=== PATIENT | male | born 1965 | race Caucasian/White ===

== ENCOUNTER 2017-09-14 20:53 | Inpatient (IN) | payer MEDICARE, MEDICAID ==
[~2017-09-14] VITALS: Ht 6290.3 cm; Wt 195.0 kg
[2017-09-14] MEDS ORDERED: normal saline 1000ml 1,000 ML IV ONE ×3 (21:19→22:05)
[2017-09-14] MEDS ORDERED: diltiazem 5mg/ml 5ml inj. IV ONE (21:20)
[2017-09-14] MEDS ORDERED: normal saline 1000ML IV soln IVB ONE (21:20)
[2017-09-14 21:32] LABS: BASOPHILS % (AUTO) 0 % (0-1); EOSINOPHILS # (AUTO) 0.1 X10'3 (0-0.9); EOSINOPHILS % (AUTO) 0.3 % (0-6); HEMOGLOBIN 13.9 g/dl (14.0-17.9); LYMPHOCYTES # (AUTO) 0.5 X10'3 (1.1-4.8); LYMPHOCYTES % (AUTO) 2.9 % (21-51); MEAN CORPUSCULAR HEMOGLOBIN 27.8 PG (27.0-31.0); MEAN CORPUSCULAR HGB CONC 33.2 % (33.0-36.5); MEAN CORPUSCULAR VOLUME 83.9 FL (78-98); MEAN PLATELET VOLUME 7.5 FL (7.4-10.4); MONOCYTES # (AUTO) 0.6 X10'3 (0-0.9); MONOCYTES % (AUTO) 3.2 % (2-12); NEUTROPHILS # (AUTO) 16.7 X10'3 (1.8-7.7); NEUTROPHILS % (AUTO) 93.6 % (42-75); PLATELET COUNT 226 X10'3 (140-440); RED BLOOD COUNT 5.01 X10'6 (4.70-6.10); RED CELL DISTRIBUTION WIDTH 14.1 % (11.5-14.5); WHITE BLOOD COUNT 17.8 X10'3 (4.5-11.0)
[2017-09-14 21:46] LABS: INR 1.1 INR; PARTIAL THROMBOPLASTIN TIME 26 SECONDS (22-32)
[2017-09-14 22:00] LABS: ALANINE AMINOTRANSFERASE 72 U/L (12-78); ALBUMIN 3.8 G/DL (3.4-5.0); ALBUMIN/GLOBULIN RATIO 0.9 (1.1-1.5); ALKALINE PHOSPHATASE 72 IU/L (46-116); ANION GAP 14 (8-16); ASPARTATE AMINO TRANSFERASE 54 U/L (10-37); BILIRUBIN,TOTAL 0.9 MG/DL (0.1-1.0); BLOOD UREA NITROGEN 17 MG/DL (7-18); BUN/CREATININE RATIO 13.3 (5.4-32.0); CALCIUM 9.1 MG/DL (8.5-10.1); CHLORIDE 98 MMOL/L (99-107); CREATININE 1.28 MG/DL (0.60-1.10); GLUCOSE 214 MG/DL (70-104); MAGNESIUM 1.7 MG/DL (1.5-2.4); PHOSPHORUS 2.6 MG/DL (2.3-4.5); POTASSIUM 4.1 MMOL/L (3.5-5.1); SODIUM 135 MMOL/L (135-145); TOTAL CARBON DIOXIDE 22.7 MMOL/L (24-32); TOTAL PROTEIN 8.1 G/DL (6.4-8.2); eGFR 59 ML/MIN
[2017-09-14] MEDS ORDERED: normal saline 1000ML IV soln IV ONE (22:25)
[2017-09-14 22:38] LABS: TOTAL CELLS COUNTED 100
[2017-09-14 22:39] LABS: LARGE PLATELETS FEW; PLATELET ESTIMATE NORMAL
[2017-09-14] MEDS ORDERED: azithromycin/NS 500mg/250ml 250 ML IV ONE (23:45)
[2017-09-14] MEDS ORDERED: CefTRIAXone 2gm/NS 100ml IVPB 100 ML IV ONE (23:45)
[2017-09-15] MEDS ORDERED: acetaminophen 325mg tablet PO PRN (00:20)
[2017-09-15] MEDS ORDERED: magnesium hydroxide 30ml (MOM) UD suspension PO PRN (00:20)
[2017-09-15] MEDS ORDERED: magnesium 4gm in 100ml NS 100 ML IV PRN (00:20)
[2017-09-15] MEDS ORDERED: magnesium 2GM in 50ml NS 50 ML IV PRN (00:20)
[2017-09-15] MEDS ORDERED: ipratropium/albuterol 3ml nebule NEB PRN (00:20)
[2017-09-15] MEDS ORDERED: potassium Cl 20 mEq SR tablet PO PRN ×2 (00:20)
[2017-09-15] MEDS ORDERED: morphine 2 MG/ML inj. syringe IV PRN (00:20)
[2017-09-15] MEDS ORDERED: albuterol 2.5 MG/3 ML nebule NEB PRN (00:20)
[2017-09-15] MEDS ORDERED: potassium Cl 40MEQ/NS 500ml 500 ML IV PRN ×2 (00:20)
[2017-09-15] MEDS ORDERED: mag hydrox/Alum hydrox/simeth 30ml oral suspension PO PRN (00:20)
[2017-09-15] MEDS ORDERED: magnesium Cl slow-release 64mg tablet PO PRN (00:20)
[2017-09-15] MEDS ORDERED: LOPE2TAB25 PO (00:29)
[2017-09-15] MEDS ORDERED: NITR0.4T51 SL (00:29)
[2017-09-15] MEDS ORDERED: LOSA25TA96 PO (00:29)
[2017-09-15] MEDS ORDERED: BUPR75TA8 PO (00:29)
[2017-09-15] MEDS ORDERED: NYSPWD TP (00:29)
[2017-09-15] MEDS ORDERED: LISI-604 PO (00:29)
[2017-09-15] MEDS ORDERED: METF500T PO (00:29)
[2017-09-15] MEDS: morphine 2 MG/ML inj. syringe IV PRN ×2 (01:18→14:39)
[2017-09-15] MEDS: ondansetron/PF 4mg/2ml inj IV PRN ×2 (01:18→08:22)
[2017-09-15 06:51] LABS: CLARITY,URINE Clear (Clear); COLOR,URINE Yellow (Yellow); GLUCOSE, URINE Negative (Neg); KETONES,URINE Trace mg/dl (Neg); LEUKOCYTE ESTERASE ,URINE Trace (Neg); NITRITES, URINE Negative (Neg); OCCULT BLOOD,URINE Negative (Neg); PROTEIN,URINE Negative (Neg)
[2017-09-15] MEDS: normal saline 1000ml 1,000 ML IV SCH ×3 (06:55→20:20)
[2017-09-15 06:58] LABS: UA COLLECTION TYPE CLN CATCH MIDSTREAM
[2017-09-15 06:59] LABS: BACTERIA,URINE FEW /HPF (Neg); MUCUS STRANDS MODERATE /LPF (Neg); RBC,URINE 0-2 /HPF (0-2); SQUAMOUS EPITHELIAL CELL,UR FEW /LPF (FEW); WBC,URINE 0-4 /HPF (0-4)
[2017-09-15] MEDS: K and/or MAG REPLACEMENT MC SCH (08:00)
[2017-09-15] MEDS ORDERED: oseltamivir phos 75mg capsule PO SCH ×2 (08:00)
[2017-09-15] MEDS: atenolol 50mg tablet PO SCH (08:16)
[2017-09-15] MEDS: azithromycin/NS 500mg/250ml 250 ML IV SCH (08:16)
[2017-09-15] MEDS: enoxaparin 60mg/0.6ml syringe SUBCUT SCH ×2 (08:23→21:12)
[2017-09-15] MEDS: enoxaparin 30mg/0.3ml syringe SUBCUT SCH ×2 (08:23→21:12)
[2017-09-15] MEDS: CefTRIAXone 2gm/NS 100ml IVPB 100 ML IV SCH (09:33)
[2017-09-15 10:32] LABS: HEMOGLOBIN A1C 6.6 % (4.5-6.2)
[2017-09-15 13:30] VITALS: BP 128/78
[2017-09-15 18:00] VITALS: BP 116/47
[2017-09-15] MEDS ORDERED: temazepam 15mg capsule PO PRN (21:00)
[2017-09-15] MEDS: lactobacillus rhamnosus 10,000 MMU CELLS/CAPSULE PO SCH (21:11)
[2017-09-15 22:17] VITALS: BP 110/68
[2017-09-16 02:03] VITALS: BP 118/74
[2017-09-16] MEDS: normal saline 1000ml 1,000 ML IV SCH (05:56)
[2017-09-16 06:00] VITALS: BP 117/63
[2017-09-16 06:23] LABS: BASOPHILS % (AUTO) 0.3 % (0-1); EOSINOPHILS # (AUTO) 0.2 X10'3 (0-0.9); EOSINOPHILS % (AUTO) 3.2 % (0-6); HEMATOCRIT 33.9 % (42.0-52.0); HEMOGLOBIN 11.2 g/dl (14.0-17.9); LYMPHOCYTES # (AUTO) 1.7 X10'3 (1.1-4.8); LYMPHOCYTES % (AUTO) 26.4 % (21-51); MEAN CORPUSCULAR HEMOGLOBIN 28.1 PG (27.0-31.0); MEAN CORPUSCULAR HGB CONC 33.1 % (33.0-36.5); MEAN CORPUSCULAR VOLUME 85.1 FL (78-98); MEAN PLATELET VOLUME 7.5 FL (7.4-10.4); MONOCYTES # (AUTO) 0.6 X10'3 (0-0.9); NEUTROPHILS # (AUTO) 3.8 X10'3 (1.8-7.7); NEUTROPHILS % (AUTO) 60.1 % (42-75); PLATELET COUNT 161 X10'3 (140-440); RED BLOOD COUNT 3.99 X10'6 (4.70-6.10); RED CELL DISTRIBUTION WIDTH 14.4 % (11.5-14.5); WHITE BLOOD COUNT 6.4 X10'3 (4.5-11.0)
[2017-09-16 06:36] LABS: ALANINE AMINOTRANSFERASE 49 U/L (12-78); ALBUMIN 2.7 G/DL (3.4-5.0); ALBUMIN/GLOBULIN RATIO 0.8 (1.1-1.5); ALKALINE PHOSPHATASE 44 IU/L (46-116); ANION GAP 9 (8-16); ASPARTATE AMINO TRANSFERASE 32 U/L (10-37); BILIRUBIN,TOTAL 0.4 MG/DL (0.1-1.0); BLOOD UREA NITROGEN 14 MG/DL (7-18); BUN/CREATININE RATIO 14.9 (5.4-32.0); CHLORIDE 105 MMOL/L (99-107); CHOLESTEROL 112 MG/DL (0-200); CREATININE 0.94 MG/DL (0.60-1.10); GLUCOSE 111 MG/DL (70-104); HDL CHOLESTEROL 37 MG/DL (35-60); LDL CHOLESTEROL 62 MG/DL (50-100); POTASSIUM 3.9 MMOL/L (3.5-5.1); SODIUM 140 MMOL/L (135-145); TOTAL CARBON DIOXIDE 26.1 MMOL/L (24-32); TOTAL PROTEIN 6.1 G/DL (6.4-8.2); TRIGLYCERIDES 75 MG/DL (20-135); eGFR 84 ML/MIN
[2017-09-16] MEDS: atenolol 50mg tablet PO SCH (07:57)
[2017-09-16] MEDS: lactobacillus rhamnosus 10,000 MMU CELLS/CAPSULE PO SCH ×2 (07:57→17:12)
[2017-09-16] MEDS: CefTRIAXone 2gm/NS 100ml IVPB 100 ML IV SCH (07:57)
[2017-09-16] MEDS: enoxaparin 30mg/0.3ml syringe SUBCUT SCH ×2 (07:58→19:09)
[2017-09-16] MEDS: enoxaparin 60mg/0.6ml syringe SUBCUT SCH ×2 (07:59→19:08)
[2017-09-16] MEDS: ondansetron/PF 4mg/2ml inj IV PRN (07:59)
[2017-09-16] MEDS: K and/or MAG REPLACEMENT MC SCH (08:00)
[2017-09-16] MEDS: azithromycin/NS 500mg/250ml 250 ML IV SCH (08:45)
[2017-09-16] MEDS ORDERED: pneumococcal 23-VAL P-sac vacc 25 mcg/0.5ml vial IMVAC ONE (10:00)
[2017-09-16] MEDS ORDERED: FLU VACC QS2017-18 36MOS UP/PF 60 MCG/0.5 ML SYRINGE IMVAC ONE (10:00)
[2017-09-16 11:00] VITALS: BP 124/76
[2017-09-16] MEDS ORDERED: furosemide 20 MG/2 ML vial IV ONE (11:45)
[2017-09-16] MEDS ORDERED: methylPREDNISolone sod succ/PF 40mg inj. IV ONE (11:45)
[2017-09-16] MEDS ORDERED: ipratropium/albuterol 3ml nebule ONE ×2 (12:01→14:14)
[2017-09-16] MEDS: ipratropium 0.5 MG/2.5ML nebule IH SCH ×2 (12:02→20:16)
[2017-09-16 15:00] VITALS: BP 99/60
[2017-09-16 19:00] VITALS: BP 136/86
[2017-09-16] MEDS: buPROPion 75mg tablet PO SCH (19:08)
[2017-09-16 23:00] VITALS: BP 123/65
[2017-09-17 03:00] VITALS: BP 125/62
[2017-09-17] MEDS: ipratropium 0.5 MG/2.5ML nebule IH SCH ×3 (03:29→20:24)
[2017-09-17 06:00] VITALS: BP 114/75
[2017-09-17 06:00] LABS: BASOPHILS % (AUTO) 0.2 % (0-1); EOSINOPHILS # (AUTO) 0.3 X10'3 (0-0.9); EOSINOPHILS % (AUTO) 3.9 % (0-6); HEMOGLOBIN 11.9 g/dl (14.0-17.9); LYMPHOCYTES # (AUTO) 1.7 X10'3 (1.1-4.8); LYMPHOCYTES % (AUTO) 22.2 % (21-51); MEAN CORPUSCULAR HEMOGLOBIN 28.4 PG (27.0-31.0); MEAN CORPUSCULAR HGB CONC 34.1 % (33.0-36.5); MEAN CORPUSCULAR VOLUME 83.2 FL (78-98); MEAN PLATELET VOLUME 7.2 FL (7.4-10.4); MONOCYTES # (AUTO) 0.6 X10'3 (0-0.9); MONOCYTES % (AUTO) 7.8 % (2-12); NEUTROPHILS # (AUTO) 5.1 X10'3 (1.8-7.7); NEUTROPHILS % (AUTO) 65.9 % (42-75); PLATELET COUNT 189 X10'3 (140-440); RED CELL DISTRIBUTION WIDTH 14.3 % (11.5-14.5); WHITE BLOOD COUNT 7.8 X10'3 (4.5-11.0)
[2017-09-17 06:17] LABS: ALANINE AMINOTRANSFERASE 37 U/L (12-78); ALBUMIN 3.1 G/DL (3.4-5.0); ALBUMIN/GLOBULIN RATIO 0.8 (1.1-1.5); ALKALINE PHOSPHATASE 47 IU/L (46-116); ANION GAP 10 (8-16); ASPARTATE AMINO TRANSFERASE 23 U/L (10-37); BILIRUBIN,TOTAL 0.4 MG/DL (0.1-1.0); BLOOD UREA NITROGEN 14 MG/DL (7-18); BUN/CREATININE RATIO 15.7 (5.4-32.0); CALCIUM 8.3 MG/DL (8.5-10.1); CHLORIDE 103 MMOL/L (99-107); CREATININE 0.89 MG/DL (0.60-1.10); GLUCOSE 128 MG/DL (70-104); MAGNESIUM 2.1 MG/DL (1.5-2.4); POTASSIUM 3.6 MMOL/L (3.5-5.1); SODIUM 139 MMOL/L (135-145); TOTAL CARBON DIOXIDE 26.3 MMOL/L (24-32); TOTAL PROTEIN 6.8 G/DL (6.4-8.2); eGFR 89 ML/MIN
[2017-09-17] MEDS: K and/or MAG REPLACEMENT MC SCH (08:00)
[2017-09-17] MEDS: enoxaparin 30mg/0.3ml syringe SUBCUT SCH ×2 (08:03→19:04)
[2017-09-17] MEDS: atenolol 50mg tablet PO SCH (08:04)
[2017-09-17] MEDS: lactobacillus rhamnosus 10,000 MMU CELLS/CAPSULE PO SCH ×2 (08:04→17:23)
[2017-09-17] MEDS: ondansetron/PF 4mg/2ml inj IV PRN (08:04)
[2017-09-17] MEDS: buPROPion 75mg tablet PO SCH ×2 (08:04→19:02)
[2017-09-17] MEDS: azithromycin/NS 500mg/250ml 250 ML IV SCH (08:04)
[2017-09-17] MEDS: enoxaparin 60mg/0.6ml syringe SUBCUT SCH ×2 (08:04→19:03)
[2017-09-17] MEDS: CefTRIAXone 2gm/NS 100ml IVPB 100 ML IV SCH (09:28)
[2017-09-17 11:00] VITALS: BP 132/90
[2017-09-17 15:00] VITALS: BP 136/94
[2017-09-17 19:00] VITALS: BP 131/79
[2017-09-17] MEDS ORDERED: traZODone 50mg tablet PO SCH (21:00)
[2017-09-17 23:00] VITALS: BP 105/62
[2017-09-18] MEDS: ipratropium 0.5 MG/2.5ML nebule IH SCH ×3 (02:42→14:08)
[2017-09-18 03:00] VITALS: BP 123/93
[2017-09-18 05:54] LABS: BASOPHILS % (AUTO) 0.3 % (0-1); EOSINOPHILS # (AUTO) 0.4 X10'3 (0-0.9); EOSINOPHILS % (AUTO) 5.5 % (0-6); HEMATOCRIT 35.7 % (42.0-52.0); HEMOGLOBIN 12.1 g/dl (14.0-17.9); LYMPHOCYTES # (AUTO) 1.7 X10'3 (1.1-4.8); LYMPHOCYTES % (AUTO) 26.8 % (21-51); MEAN CORPUSCULAR HEMOGLOBIN 28.3 PG (27.0-31.0); MEAN CORPUSCULAR HGB CONC 33.9 % (33.0-36.5); MEAN CORPUSCULAR VOLUME 83.7 FL (78-98); MEAN PLATELET VOLUME 7.6 FL (7.4-10.4); MONOCYTES # (AUTO) 0.6 X10'3 (0-0.9); MONOCYTES % (AUTO) 9.2 % (2-12); NEUTROPHILS # (AUTO) 3.8 X10'3 (1.8-7.7); NEUTROPHILS % (AUTO) 58.2 % (42-75); PLATELET COUNT 219 X10'3 (140-440); RED BLOOD COUNT 4.26 X10'6 (4.70-6.10); RED CELL DISTRIBUTION WIDTH 14.3 % (11.5-14.5); WHITE BLOOD COUNT 6.5 X10'3 (4.5-11.0)
[2017-09-18 06:00] VITALS: BP 144/84
[2017-09-18 06:02] LABS: ALANINE AMINOTRANSFERASE 33 U/L (12-78); ALBUMIN 3.1 G/DL (3.4-5.0); ALBUMIN/GLOBULIN RATIO 0.8 (1.1-1.5); ALKALINE PHOSPHATASE 51 IU/L (46-116); ANION GAP 7 (8-16); ASPARTATE AMINO TRANSFERASE 20 U/L (10-37); BILIRUBIN,TOTAL 0.5 MG/DL (0.1-1.0); BLOOD UREA NITROGEN 13 MG/DL (7-18); BUN/CREATININE RATIO 13.4 (5.4-32.0); CALCIUM 8.8 MG/DL (8.5-10.1); CHLORIDE 104 MMOL/L (99-107); CREATININE 0.97 MG/DL (0.60-1.10); GLUCOSE 118 MG/DL (70-104); MAGNESIUM 2.3 MG/DL (1.5-2.4); POTASSIUM 3.7 MMOL/L (3.5-5.1); SODIUM 141 MMOL/L (135-145); eGFR 81 ML/MIN
[2017-09-18] MEDS: buPROPion 75mg tablet PO SCH (07:50)
[2017-09-18] MEDS: atenolol 50mg tablet PO SCH (07:50)
[2017-09-18] MEDS: lactobacillus rhamnosus 10,000 MMU CELLS/CAPSULE PO SCH ×2 (07:50→17:34)
[2017-09-18] MEDS: CefTRIAXone 2gm/NS 100ml IVPB 100 ML IV SCH (07:50)
[2017-09-18] MEDS: enoxaparin 60mg/0.6ml syringe SUBCUT SCH (07:51)
[2017-09-18] MEDS: enoxaparin 30mg/0.3ml syringe SUBCUT SCH (07:51)
[2017-09-18] MEDS: K and/or MAG REPLACEMENT MC SCH (08:00)
[2017-09-18] MEDS: azithromycin/NS 500mg/250ml 250 ML IV SCH (08:32)
[2017-09-18 11:00] VITALS: BP 131/87
[2017-09-18 15:00] VITALS: BP 117/85
[2017-09-18] MEDS ORDERED: LACT1CAP26 PO (16:33)
[2017-09-18] MEDS ORDERED: APIX5TAB3 PO (16:33)
[2017-09-18] MEDS ORDERED: AMOX-422 PO (16:33)
[2017-09-18] MEDS ORDERED: ATEN50TA41 PO (16:33)
[2017-09-18] MEDS ORDERED: AZI25OT PO (16:35)
[2017-09-19] MEDS ORDERED: azithromycin 250mg tablet PO SCH (08:00)
== END 2017-09-18 17:55 | disposition home or self-care (01) | DRG 871 ==
LOC: ER 20:54 → ED HOLD 09-15 00:20 → PCU 3S 09-15 13:30
PROVIDERS: ADMIT Internal Medicine; ATTEND Internal Medicine
PROC: 5A09357 Assistance with Respiratory Ventilation, Less than 24 Consecutive Hours, Continuous Positive Airway Pressure (ICD-10-PCS; principal; 2017-09-15)
PROC: 5A09357 Assistance with Respiratory Ventilation, Less than 24 Consecutive Hours, Continuous Positive Airway Pressure (ICD-10-PCS; 2017-09-16)
PROC: 5A09357 Assistance with Respiratory Ventilation, Less than 24 Consecutive Hours, Continuous Positive Airway Pressure (ICD-10-PCS; 2017-09-17)
DX: A41.9 Sepsis, unspecified organism (principal); J18.1 Lobar pneumonia, unspecified organism; N17.9 Acute kidney failure, unspecified; E11.42 Type 2 diabetes mellitus with diabetic polyneuropathy; I48.91 Unspecified atrial fibrillation; E66.01 Morbid (severe) obesity due to excess calories; E78.00 Pure hypercholesterolemia, unspecified; E78.5 Hyperlipidemia, unspecified; G47.30 Sleep apnea, unspecified; I10 Essential (primary) hypertension; I25.10 Atherosclerotic heart disease of native coronary artery without angina pectoris; J45.909 Unspecified asthma, uncomplicated; R74.0 Nonspecific elevation of levels of transaminase and lactic acid dehydrogenase [LDH]; Z98.84 Bariatric surgery status; Z79.01 Long term (current) use of anticoagulants; Z79.84 Long term (current) use of oral hypoglycemic drugs; Z79.899 Other long term (current) drug therapy
CPT/HCPCS: 36415; 71045; 80053; 80061; 81001; 82948; 83036; 83605; 83735; 83880; 84100; 84145; 84484; 85025; 85610; 85730; 87040; 87070; 87088; 87502; 87503; 90732; 93005; 93306; 94640; 94660; 94760; 96361; 96374; 99285; J0456; J0696; J1650; J1940; J2270; J2405; J2920; J3490; J7030; Q2037

== ENCOUNTER 2019-12-02 07:19 | Emergency (ER) | payer MEDICARE, MEDICAID ==
[~2019-12-02] VITALS: Ht 188 cm; Wt 195.4 kg
[~2019-12-02 07:19] MED LIST: APIX5TAB3 PO; ATEN50TA41 PO; AZI25OT PO; BUPR75TA8 PO; LACT1CAP26 PO
[2019-12-02 07:57] LABS: BASOPHILS # (AUTO) 0.1 X10'3 (0-0.2); BASOPHILS % (AUTO) 0.4 % (0-1); EOSINOPHILS # (AUTO) 0.1 X10'3 (0-0.9); EOSINOPHILS % (AUTO) 0.7 % (0-6); HEMATOCRIT 39.8 % (42.0-52.0); HEMOGLOBIN 12.5 g/dl (14.0-17.9); LYMPHOCYTES # (AUTO) 0.6 X10'3 (1.1-4.8); LYMPHOCYTES % (AUTO) 4.3 % (21-51); MEAN CORPUSCULAR HEMOGLOBIN 25.1 PG (27.0-31.0); MEAN CORPUSCULAR HGB CONC 31.5 g/dL (33.0-36.5); MEAN CORPUSCULAR VOLUME 79.6 FL (78-98); MEAN PLATELET VOLUME 7.4 FL (7.4-10.4); MONOCYTES % (AUTO) 6.7 % (2-12); NEUTROPHILS # (AUTO) 12.7 X10'3 (1.8-7.7); NEUTROPHILS % (AUTO) 87.9 % (42-75); PLATELET COUNT 217 X10'3 (140-440); RED BLOOD COUNT 4.99 X10'6 (4.70-6.10); RED CELL DISTRIBUTION WIDTH 17.1 % (11.5-14.5); WHITE BLOOD COUNT 14.4 X10'3 (4.5-11.0)
[2019-12-02 08:13] LABS: ALANINE AMINOTRANSFERASE 29 U/L (12-78); ALBUMIN 3.4 G/DL (3.4-5.0); ALBUMIN/GLOBULIN RATIO 0.9 (1.1-1.5); ALKALINE PHOSPHATASE 75 IU/L (46-116); ANION GAP 11 (8-16); ASPARTATE AMINO TRANSFERASE 21 U/L (10-37); BILIRUBIN,TOTAL 0.6 MG/DL (0.1-1.0); BLOOD UREA NITROGEN 18 MG/DL (7-18); BUN/CREATININE RATIO 15.5 (5.4-32.0); CALCIUM 8.4 MG/DL (8.5-10.1); CHLORIDE 103 MMOL/L (99-107); CREATININE 1.16 MG/DL (0.60-1.10); GLUCOSE 170 MG/DL (70-104); POTASSIUM 4.2 MMOL/L (3.5-5.1); SODIUM 136 MMOL/L (135-145); TOTAL CARBON DIOXIDE 22.3 MMOL/L (24-32); TOTAL PROTEIN 7.4 G/DL (6.4-8.2); eGFR 65 ML/MIN
[2019-12-02] MEDS ORDERED: acetaminophen 325mg tablet PO STA (08:42)
[2019-12-02] MEDS ORDERED: normal saline 1000ML IV soln IV ONE (08:45)
[2019-12-02 09:26] LABS: CLARITY,URINE CLEAR (Clear); COLOR,URINE YELLOW (Yellow); GLUCOSE, URINE NEGATIVE (Neg); KETONES,URINE TRACE mg/dl (Neg); LEUKOCYTE ESTERASE ,URINE NEGATIVE (Neg); NITRITES, URINE NEGATIVE (Neg); OCCULT BLOOD,URINE NEGATIVE (Neg); PROTEIN,URINE NEGATIVE (Neg); UROBILINOGEN,URINE 0.2 E.U/dL (0.2-1.0)
[2019-12-02] MEDS ORDERED: levoFLOXACIN-Levaquin 750MG/D5 150 ML IV ONE (09:30)
[2019-12-02 09:35] LABS: UA COLLECTION TYPE VOIDED
[2019-12-02 11:38] VITALS: BP 130/78
[2019-12-02] MEDS ORDERED: LEVO750T21 PO (12:08)
== END 2019-12-02 12:17 | disposition home or self-care (01) ==
LOC: ER 07:19
DX: R50.9 Fever, unspecified (principal); Z20.828 Contact with and (suspected) exposure to other viral communicable diseases; E11.42 Type 2 diabetes mellitus with diabetic polyneuropathy; I48.91 Unspecified atrial fibrillation; I25.10 Atherosclerotic heart disease of native coronary artery without angina pectoris; E78.00 Pure hypercholesterolemia, unspecified; I10 Essential (primary) hypertension; J45.909 Unspecified asthma, uncomplicated; Z95.1 Presence of aortocoronary bypass graft; Z79.01 Long term (current) use of anticoagulants; Z79.2 Long term (current) use of antibiotics; Z79.899 Other long term (current) drug therapy
CPT/HCPCS: 36415; 71045; 80053; 81003; 83605; 84145; 85025; 87040; 87635; 96365; 96366; 99285; J1956; J7030

== ENCOUNTER 2022-02-18 14:48 | Emergency (ER) | payer MEDICARE, MEDICAID ==
[~2022-02-18] VITALS: Ht 188 cm; Wt 195.4 kg
[2022-02-18] MEDS ORDERED: normal saline 1000ML IV soln IV ONE (15:40)
[2022-02-18] MEDS ORDERED: piperacillin/tazo 3.375gm/50ml 50 ML IV ONE (15:40)
[2022-02-18 16:22] LABS: BASOPHILS % (AUTO) 0.2 % (0-1); EOSINOPHILS % (AUTO) 0.1 % (0-6); HEMOGLOBIN 13.2 g/dl (14.0-17.9); LYMPHOCYTES % (AUTO) 8.3 % (21-51); MEAN CORPUSCULAR HEMOGLOBIN 26.9 PG (27.0-31.0); MEAN CORPUSCULAR HGB CONC 32.3 g/dL (33.0-36.5); MEAN CORPUSCULAR VOLUME 83.5 FL (78-98); MEAN PLATELET VOLUME 7.3 FL (7.4-10.4); MONOCYTES # (AUTO) 0.9 X10'3 (0-0.9); MONOCYTES % (AUTO) 7.8 % (2-12); NEUTROPHILS # (AUTO) 9.7 X10'3 (1.8-7.7); NEUTROPHILS % (AUTO) 83.6 % (42-75); PLATELET COUNT 271 X10'3 (140-440); RED BLOOD COUNT 4.91 X10'6 (4.70-6.10); RED CELL DISTRIBUTION WIDTH 14.5 % (11.5-14.5); WHITE BLOOD COUNT 11.5 X10'3 (4.5-11.0)
[2022-02-18 16:32] LABS: ALANINE AMINOTRANSFERASE 15 U/L (12-78); ALBUMIN 2.9 G/DL (3.4-5.0); ALBUMIN/GLOBULIN RATIO 0.6 (1.1-1.5); ANION GAP 10 (8-16); ASPARTATE AMINO TRANSFERASE 14 U/L (10-37); BILIRUBIN,TOTAL 0.8 MG/DL (0.1-1.0); BLOOD UREA NITROGEN 17 MG/DL (7-18); BUN/CREATININE RATIO 16.7 (5.4-32.0); CALCIUM 8.7 MG/DL (8.5-10.1); CHLORIDE 100 MMOL/L (99-107); CREATININE 1.02 MG/DL (0.60-1.10); GLUCOSE 212 MG/DL (70-104); MAGNESIUM 2.2 MG/DL (1.5-2.4); POTASSIUM 3.5 MMOL/L (3.5-5.1); SODIUM 134 MMOL/L (135-145); TOTAL CARBON DIOXIDE 24.5 MMOL/L (24-32); eGFR 75 ML/MIN
[2022-02-18 16:48] LABS: ALKALINE PHOSPHATASE 56 IU/L (46-116)
[2022-02-18 19:13] LABS: CLARITY,URINE SLIGHTLY CLOUDY (Clear); COLOR,URINE AMBER (Yellow); GLUCOSE, URINE 100 mg/dl (Neg); KETONES,URINE 15 mg/dl (Neg); LEUKOCYTE ESTERASE ,URINE NEGATIVE (Neg); NITRITES, URINE NEGATIVE (Neg); OCCULT BLOOD,URINE MODERATE (Neg); PROTEIN,URINE 30 mg/dl (Neg); UA COLLECTION TYPE CLN CATCH MIDSTREAM
[2022-02-18 19:37] LABS: AMORPHOUS URATES 3+; BACTERIA,URINE NONE SEEN /HPF (Neg); SQUAMOUS EPITHELIAL CELL,UR FEW /LPF (FEW); WBC,URINE 0-4 /HPF (0-4)
[2022-02-18 19:38] LABS: MUCUS STRANDS MODERATE /LPF (Neg)
[2022-02-18] MEDS ORDERED: cephalexin 250mg capsule PO ONE (20:00)
[2022-02-18] MEDS ORDERED: CEPH-585 PO (20:05)
[2022-02-18 21:54] VITALS: BP 132/77
== END 2022-02-18 22:22 | disposition home or self-care (01) ==
LOC: ER 14:49
DX: L03.116 Cellulitis of left lower limb (principal); Z20.822 Contact with and (suspected) exposure to COVID-19; R22.42 Localized swelling, mass and lump, left lower limb; I10 Essential (primary) hypertension; J45.909 Unspecified asthma, uncomplicated; Z88.8 Allergy status to other drugs, medicaments and biological substances
CPT/HCPCS: 36415; 71045; 80053; 81001; 83605; 83735; 84145; 85025; 87040; 87635; 93005; 93971; 96361; 96365; 96366; 99285; C9803; J2543; J7030

== ENCOUNTER 2022-07-12 18:02 | Emergency (ER) | payer MEDICARE, MEDICAID ==
[~2022-07-12] VITALS: Ht 188 cm; Wt 184.1 kg
[~2022-07-12 18:02] MED LIST changes: +CEPH-585 PO
[2022-07-12 19:19] VITALS: BP 156/103
== END 2022-07-12 22:17 | disposition home or self-care (01) ==
LOC: ER 18:03
DX: S73.102A Unspecified sprain of left hip, initial encounter (principal); I48.91 Unspecified atrial fibrillation; I25.10 Atherosclerotic heart disease of native coronary artery without angina pectoris; E78.00 Pure hypercholesterolemia, unspecified; I10 Essential (primary) hypertension; J45.909 Unspecified asthma, uncomplicated; E11.9 Type 2 diabetes mellitus without complications; Z98.84 Bariatric surgery status; Z79.2 Long term (current) use of antibiotics; Z79.899 Other long term (current) drug therapy; Z88.8 Allergy status to other drugs, medicaments and biological substances; W19.XXXA Unspecified fall, initial encounter; Y93.89 Activity, other specified; Y92.89 Other specified places as the place of occurrence of the external cause; Y99.8 Other external cause status
CPT/HCPCS: 72192; 99284; 99285; 99291

== ENCOUNTER 2022-10-12 13:43 | Emergency (ER) | payer MEDICARE, MEDICAID ==
[~2022-10-12] VITALS: Ht 182.9 cm; Wt 176.4 kg
[2022-10-12 14:45] LABS: BASOPHILS # (AUTO) 0.1 X10'3 (0-0.2); BASOPHILS % (AUTO) 0.5 % (0-1); EOSINOPHILS # (AUTO) 0.1 X10'3 (0-0.9); EOSINOPHILS % (AUTO) 0.8 % (0-6); HEMATOCRIT 47.8 % (42.0-52.0); HEMOGLOBIN 15.9 g/dl (14.0-17.9); LYMPHOCYTES # (AUTO) 3.1 X10'3 (1.1-4.8); LYMPHOCYTES % (AUTO) 28.4 % (21-51); MEAN CORPUSCULAR HEMOGLOBIN 29.9 PG (27.0-31.0); MEAN CORPUSCULAR HGB CONC 33.2 g/dL (33.0-36.5); MEAN PLATELET VOLUME 7.5 FL (7.4-10.4); MONOCYTES # (AUTO) 0.7 X10'3 (0-0.9); MONOCYTES % (AUTO) 6.7 % (2-12); NEUTROPHILS # (AUTO) 6.8 X10'3 (1.8-7.7); NEUTROPHILS % (AUTO) 63.6 % (42-75); PLATELET COUNT 274 X10'3 (140-440); RED BLOOD COUNT 5.31 X10'6 (4.70-6.10); RED CELL DISTRIBUTION WIDTH 14.4 % (11.5-14.5); WHITE BLOOD COUNT 10.7 X10'3 (4.5-11.0)
[2022-10-12 14:46] LABS: CLARITY,URINE CLOUDY (Clear); COLOR,URINE YELLOW (Yellow); GLUCOSE, URINE NEGATIVE (Neg); KETONES,URINE TRACE mg/dl (Neg); LEUKOCYTE ESTERASE ,URINE NEGATIVE (Neg); NITRITES, URINE NEGATIVE (Neg); OCCULT BLOOD,URINE NEGATIVE (Neg); PH,URINE 5.5 (4.8-8.0); PROTEIN,URINE NEGATIVE (Neg)
[2022-10-12 14:53] LABS: UA COLLECTION TYPE CLN CATCH MIDSTREAM
[2022-10-12 14:54] LABS: HYALINE CASTS 0-3 /LPF (NEGATIVE); MUCUS STRANDS MANY /LPF (Neg); SQUAMOUS EPITHELIAL CELL,UR FEW /LPF (FEW)
[2022-10-12 14:55] LABS: BACTERIA,URINE FEW /HPF (Neg); RBC,URINE 0-2 /HPF (0-2); TRANSITIONAL EPI CELLS,URINE FEW /HPF
[2022-10-12 15:08] LABS: ALANINE AMINOTRANSFERASE 45 U/L (12-78); ALBUMIN 4.1 G/DL (3.4-5.0); ALKALINE PHOSPHATASE 77 IU/L (46-116); ANION GAP 10 (8-16); ASPARTATE AMINO TRANSFERASE 40 U/L (10-37); BILIRUBIN,TOTAL 0.5 MG/DL (0.1-1.0); BLOOD UREA NITROGEN 23 MG/DL (7-18); BUN/CREATININE RATIO 23.5 (5.4-32.0); CALCIUM 9.5 MG/DL (8.5-10.1); CHLORIDE 105 MMOL/L (99-107); CREATININE 0.98 MG/DL (0.60-1.10); GLUCOSE 113 MG/DL (70-104); LIPASE 799 U/L (73-393); POTASSIUM 4.8 MMOL/L (3.5-5.1); SODIUM 140 MMOL/L (135-145); TOTAL PROTEIN 8.2 G/DL (6.4-8.2); eGFR 78 ML/MIN
[2022-10-12 15:50] VITALS: BP 158/84
[2022-10-12] MEDS ORDERED: ketorolac trometh inj. 60 MG/2 ML VIAL IM ONE (16:10)
[2022-10-12] MEDS: cyclobenzaprine 10mg tablet PO ONE ×2 (16:22→16:26)
[2022-10-12] MEDS ORDERED: CYCL-1 PO (17:24)
[2022-10-12] MEDS ORDERED: HYDR-3965 PO (17:24)
[2022-10-12] MEDS ORDERED: LIDO700A32 TOP (17:24)
[2022-10-12] MEDS ORDERED: HYDROcodone/acetaminophen 10/325mg tab PO ONE (17:25)
== END 2022-10-12 17:56 | disposition home or self-care (01) ==
LOC: ER 13:43
DX: S39.012A Strain of muscle, fascia and tendon of lower back, initial encounter (principal); E78.00 Pure hypercholesterolemia, unspecified; I10 Essential (primary) hypertension; J45.909 Unspecified asthma, uncomplicated; E11.9 Type 2 diabetes mellitus without complications; Z88.8 Allergy status to other drugs, medicaments and biological substances; X58.XXXA Exposure to other specified factors, initial encounter; Y93.89 Activity, other specified; Y92.89 Other specified places as the place of occurrence of the external cause; Y99.8 Other external cause status
CPT/HCPCS: 36415; 80053; 81001; 83690; 85025; 87088; 96372; 99283; J1885